=== PATIENT | male | born 1960 | race Hispanic/Latino ===

== ENCOUNTER 2016-09-10 22:14 | Emergency (ER) | payer OTHER ==
[2016-09-10 23:03] LABS: Basophils % (Auto) 1.4 % (0.0-1.8); Eosinophils % (Auto) 2.2 % (0.0-4.3); Hematocrit 36.1 % (35.5-45.6); Hemoglobin 11.9 gm/dl (11.8-15.2); Mean Corpuscular HGB Conc 33 % (32-34); Mean Corpuscular Volume 77 fl (84-94); Platelet Count 295 K/mm3 (140-440); Red Cell Distribution Width 18.3 % (13.2-15.2); White Blood Count 7.3 K/mm3 (4.5-11.0)
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
[2016-09-10 23:07] LABS: Mean Corpuscular Hemoglobin 25 pg (28-32)
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
[2016-09-10 23:12] LABS: INR 1.05 (0.87-1.13)
[2016-09-10 23:18] LABS: Alanine Aminotransferase 17 units/L (7-56); Albumin 3.8 g/dL (3.9-5); Albumin/Globulin Ratio 1.2 %; Alkaline Phosphatase 92 units/L (35-129); Anion Gap 15 mmol/L; BUN/Creatinine Ratio 21.25; Blood Urea Nitrogen 17 mg/dL (9-20); Calcium 8.8 mg/dL (8.4-10.2); Carbon Dioxide 27 mmol/L (22-30); Chloride 101.8 mmol/L (98-107); Creatine Kinase 147 units/L (55-170); Glucose 93 mg/dL (75-100); Potassium 3.6 mmol/L (3.6-5.0); Sodium 140 mmol/L (137-145); Total Protein 7.1 g/dL (6.3-8.2)
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
--- NOTE | 2016-09-10 23:31 | Cat Scan Report ---
FINAL REPORT EXAM: CT CERVICAL SPINE WO CON HISTORY: Trauma pain. COMPARISON: None available. TECHNIQUE: Axial images obtained through the cervical spine. Additional sagittal and coronal reformatted images were obtained. FINDINGS: Straightening of the normal lordotic curvature of the cervical spine. Mild levoconvex curvature. Cervical vertebral body heights are preserved. No acute fracture or traumatic subluxation. Odontoid process, articular pillars and occipital condyles are intact. Moderate to severe loss of disc height C3-C4 through C6-C7 levels. Mild canal stenosis and moderate and moderate to severe foramina ring at those levels due to endplate osteophyte, uncovertebral hypertrophy and facet degenerative changes. Scarring at the lung apices with paraseptal emphysematous changes. IMPRESSION: No acute fracture or subluxation of the cervical spine. Moderate degenerative changes. Straightening of the cervical spine mild levoconvex curvature which may relate to patient positioning or muscle spasm.
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
[2016-09-10] MEDS ORDERED: MORPHINE IM ONE (23:51)
[2016-09-11 00:44] LABS: Urine Drugs of Abuse Note Disclamer
[2016-09-11 00:54] LABS: Bilirubin,Urine NEG (Negative); Blood,Urine MOD (Negative); Ketones,Urine NEG (Negative); Leukocyte Esterase,Urine NEG (Negative); Mucus,Urine FEW /HPF; Nitrite,Urine NEG (Negative); Protein,Urine <15 mg/dL mg/dL (Negative)
[2016-09-11 01:28] VITALS: BP 129/85
== END 2016-09-11 01:28 | disposition home or self-care (01) ==
LOC: ED 22:14
DX: M54.2 Cervicalgia (principal); M54.6 Pain in thoracic spine; F17.200 Nicotine dependence, unspecified, uncomplicated; M41.9 Scoliosis, unspecified; V43.52XA Car driver injured in collision with other type car in traffic accident, initial encounter; Y93.89 Activity, other specified; Y99.8 Other external cause status; Y92.488 Other paved roadways as the place of occurrence of the external cause
CPT/HCPCS: 36415; 70450; 71010; 72125; 72128; 72131; 72170; 80053; 80307; 81001; 82550; 85025; 85610; 85730; 96372; 99285; G0480; J2270; 80320